=== PATIENT | male | born 1975 | race Caucasian/White ===

== ENCOUNTER 2017-08-01 06:24 | Day surgery (SDC) | payer BC ==
[2017-07-31 11:13] VITALS: BMI 36.2
[2017-08-01] MEDS ORDERED: BUPIVACAINE HCL/PF 0.5% (5MG/ML) 10 ML VIAL ONE (07:11)
[2017-08-01] MEDS ORDERED: TAMSULOSIN HCL 0.4 MG CAP.ER.24H (FP) ONE (07:28)
[2017-08-01] MEDS ORDERED: ERTAPENEM SODIUM 1 GM VIAL ONE (07:29)
[2017-08-01] MEDS ORDERED: TAMSULOSIN HCL 0.4 MG CAP.ER.24H (FP) PO ONE (07:30)
[2017-08-01] MEDS ORDERED: MIDAZOLAM HCL 2 MG/2 ML SINGLE DOSE VIAL ONE (07:53)
[2017-08-01] MEDS ORDERED: fentaNYL CITRATE 250 MCG/5 ML VIAL ONE (07:53)
[2017-08-01] MEDS ORDERED: ROCURONIUM BROMIDE 50 MG/5 ML VIAL ONE ×2 (07:54→09:08)
[2017-08-01] MEDS ORDERED: PROPOFOL 20 ML ONE ×2 (07:54)
[2017-08-01] MEDS ORDERED: SUCCINYLCHOLINE CHLORIDE 200 MG/10 ML VIAL ONE (08:13)
[2017-08-01] MEDS ORDERED: ERTAPENEM SODIUM 1 GM VIAL IVPB ONE (08:18)
[2017-08-01] MEDS ORDERED: BUPIVACAINE HCL/PF (5 MG/ML) 30 ML VIAL IJ ONE (08:33)
[2017-08-01] MEDS ORDERED: DEXAMETHASONE SOD PHOSPHATE 4 MG/1 ML VIAL ONE (09:34)
[2017-08-01] MEDS ORDERED: LIDOCAINE HCL/PF 2% SDV 5ML VIAL ONE (09:34)
[2017-08-01] MEDS ORDERED: LIDOCAINE HCL 2% JELLY (5 ML/TUBE) ONE (09:34)
[2017-08-01] MEDS ORDERED: ONDANSETRON 4 MG/2 ML VIAL ONE (09:34)
[2017-08-01] MEDS ORDERED: GLYCOPYRROLATE 0.2 MG/1 ML VIAL ONE (09:34)
[2017-08-01] MEDS ORDERED: NEOSTIGMINE METHYLSULFATE 0.5 MG/ML - 10 ML MDV ONE (09:37)
[2017-08-01] MEDS ORDERED: PROMETHAZINE HCL 25 MG/1 ML VIAL IVPUSH PRN (10:01)
[2017-08-01] MEDS ORDERED: ONDANSETRON 4 MG/2 ML VIAL IVPUSH PRN (10:01)
[2017-08-01] MEDS ORDERED: LACTATED RINGERS SOLUTION 1,000 ML IV SCH (10:15)
--- NOTE | 2017-08-01 10:49 | OP ---
DATE OF OPERATION: 08/01/2017 PREOPERATIVE DIAGNOSIS: Incarcerated right inguinal hernia. POSTOPERATIVE DIAGNOSIS: Incarcerated right inguinal hernia. PROCEDURE: Open reduction and repair of chronically incarcerated hernia with mesh (Phasix plug/patch)/intermediate wound closure (8 cm). OPERATING SURGEON: Dong Naranjo MD ACCOUNT ENGINEER: Ramiro Choi MD ANESTHESIA: General, Dr. Jacobs HISTORY: This is a 41-year-old man with a longstanding history of a large right inguinal hernia, which has recently become incarcerated. I initiated evaluated the patient several months ago. Apparently, he had a prior gastric bypass and had lost a significant amount of weight. He then underwent an abdominoplasty, which was complicated by bleeding and infection in the subcutaneous space of the abdominal wall. His surgery was deferred for several months until the abdominoplasty wound healed. He presents now for definitive management of his hernia. However, given the extent of the infection and the slow closure of the abdominoplasty combined with the fact that the operative field will be shared, I spoke with the patient about placing an absorbable mesh to prevent an infection of the prosthesis. He agrees. Indications, alternatives, and possible complications reviewed. Consent obtained. DESCRIPTION OF PROCEDURE: With the patient in supine position under general anesthesia, the right groin region was prepped and draped in the usual sterile fashion using Betadine. An 8-cm right groin incision was made between the right pubic tubercle and right iliac spine. The incision was deepened into the subcutaneous space. All identified vessels in the subcutaneous space were clamped, divided, and ligated. There was rather extensive scarring in the subcutaneous space consistent with the right lateral aspect of the abdominoplasty surgery. The external oblique aponeurosis was then incised in the direction of its fibers. The underlying inguinal nerve was identified and spared. The undersurface was split. External oblique aponeurosis was swept clean to the level of the pubic tubercle at which point a [place] drain was placed around the cord structures and the obvious large sac, which was approaching the scrotum. The large sac was from the cord structures exercising care not to injure the vas or its vascular component. The sac was mobilized to the level of the preperitoneal fat and inferior epigastric vessels. A portion of the walled sac was made up by a large amount of intra-abdominal fat. This large sliding component was entirely reduced. Now directing our attention to the inguinal ligament floor, there was almost complete attenuation of the transversalis fascia. The transversalis fascia was incised and divided throughout its entire lip. The preperitoneal tissues were reduced. A Phasix plug was placed in the preperitoneal space and fanned out underneath the musculature at that level tacking the mesh in place circumferentially with 2-0 Prolene sutures. The attenuated transversalis fascia was then imbricated in 2 layers over the Phasix plug leaving that plug entirely in the preperitoneal space. This was accomplished with a continuous 2-0 Prolene suture beginning at the pubic tubercle approaching the internal ring to permit only fingertip entrance and returning to the pubic tubercle. An overlying piece of Phasix mesh was then fashioned about the inguinal floor and tacked in place circumferentially with 2-0 Prolene sutures. The superior portion of the mesh was gibson holed and wrapped around the cord and tacked in place reconstructing it and reinforcing the internal ring. The nerve and cord were then returned to their anatomic positions. The overlying external oblique aponeurosis was closed in continuous fashion using 3-0 Vicryl suture material. After adequate hemostasis, the wound was closed in layers. Lupe fascia was approximated using 3-0 chromic sutures. The subcutaneous tissues were approximated with interrupted 3-0 chromic sutures. Subcuticularly it was approximated with interrupted 4-0 Biosyn suture. The skin edges were approximated using metallic clips. Prior to complete closure of the wound, 10 mL of 0.5% Marcaine was freely instilled in the wound. NEEDLE, SPONGE, AND INSTRUMENT COUNT: Correct. ESTIMATED BLOOD LOSS: Minimal. SPECIMENS: None. DRAINS: None. IMPLANT: Phasix mesh plug. The patient tolerated the procedure well, and the procedure was terminated. Antoni [id number]
[2017-08-01 11:11] VITALS: TEMP 98.2
[2017-08-01] MEDS: oxyCODONE HCL 5 MG TABLET PO PRN ×2 (11:15→11:45)
[2017-08-01 18:38] VITALS: BP 134/83; PULSE 100
== END 2017-08-01 16:00 | disposition home or self-care (01) ==
LOC: JASU-SURG 06:24
PROVIDERS: ATTEND Surgery
PROC: 0YU50JZ Supplement Right Inguinal Region with Synthetic Substitute, Open Approach (ICD-10-PCS; principal; 2017-08-01 08:00)
DX: K40.30 Unilateral inguinal hernia, with obstruction, without gangrene, not specified as recurrent (principal)
CPT/HCPCS: 94760

== ENCOUNTER 2021-04-23 13:22 | Emergency (ER) | payer BC ==
[2021-04-23 13:55] VITALS: PULSE 90; TEMP 98; BMI 33.5
[2021-04-23] MEDS ORDERED: SODIUM CHLORIDE 1,000 ML IV STA (13:58)
[2021-04-23] MEDS ORDERED: FAMOTIDINE 20 MG/50 ML IVPB 20 MG/50 ML MG IVPB ONE ×2 (13:58→14:02)
[2021-04-23 14:40] VITALS: BP 138/101
[2021-04-23 15:21] LABS: BASO % 1.4 % (0-2.0); EOS % 1.5 % (0-4.5); HEMATOCRIT 43.2 % (35.4-49); HEMOGLOBIN 13.4 GM/dl (11.7-16.9); MCHC 31.1 g/dl (32.0-35.9); MEAN CELL VOLUME 62.2 fl (80-96); MEAN PLT VOLUME 10.6 fl (7.5-11.1); MONO % 6.8 % (3.8-10.2); NEUT % 73.3 % (42.8-82.8); PLATELET COUNT 158 10^3/uL (134-434); RBC 6.94 M/mm3 (4.00-5.60); RDW 20.6 % (11.9-15.9); WHITE BLOOD COUNT 8.4 K/mm3 (4.0-10.8)
[2021-04-23 15:22] LABS: ADD RBC MORPHOLOGY YES; MCH 19.3 pg (25.7-33.7)
[2021-04-23 15:23] LABS: ALBUMIN 4.5 g/dl (3.4-5.0); BILIRUBIN,TOTAL 0.6 mg/dl (0.2-1); CALCIUM 9.3 mg/dl (8.5-10); CREATININE 0.7 mg/dl (0.55-1.3); TOT PROT 6.8 g/dl (6.4-8.2)
[2021-04-23 15:45] LABS: ANISOCYTOSIS 3+; MACROCYTOSIS 2+
== END 2021-04-23 17:31 | disposition home or self-care (01) ==
LOC: FER 13:22
PROC: 3E033GC Introduction of Other Therapeutic Substance into Peripheral Vein, Percutaneous Approach (ICD-10-PCS; principal; 2021-04-23)
DX: R10.10 Upper abdominal pain, unspecified (principal)
CPT/HCPCS: 36415; 74177-TC; 80053; 83690; 85025; 93005; 99285-25; Q9967

== ENCOUNTER 2023-01-22 07:01 | Emergency (ER) | payer BC ==
[2023-01-22 07:10] VITALS: BP 149/96; PULSE 103; RESP 18; TEMP 98.3; BMI 39.2
[2023-01-22] MEDS ORDERED: IBUPROFEN 600 MG TABLET (FP) PO ONE ×2 (07:18→07:21)
== END 2023-01-22 08:29 | disposition home or self-care (01) ==
LOC: FER 07:01
PROC: 2W3SX1Z Immobilization of Right Foot using Splint (ICD-10-PCS; principal; 2023-01-22)
DX: S92.414A Nondisplaced fracture of proximal phalanx of right great toe, initial encounter for closed fracture (principal); W20.8XXA Other cause of strike by thrown, projected or falling object, initial encounter
CPT/HCPCS: 73630-TC-RT-FY; 99283-25